=== PATIENT | female | born 1970 | race Caucasian/White ===

== ENCOUNTER 2019-02-19 10:00 | Observation (INO) ==
[2019-02-19] MEDS ORDERED: Aspirin 325 MG TABLET PO ONE (10:25)
[2019-02-19] MEDS: Nitroglycerin 0.4 MG TAB.SUBL SL SCH ×2 (10:41→14:35)
[2019-02-19 10:42] LABS: Basophils # 0.1 K/mcL (0.0-0.2); Basophils % 0.7 %; Eosinophils # 0.2 K/mcL (0.0-0.6); Hematocrit 40.4 % (35.3-44.9); Hemoglobin 13.2 g/dL (11.5-15.4); Lymphocytes # 1.9 K/mcL (0.6-4.6); Lymphocytes % 24.6 %; Mean Corpuscular HGB Conc 32.7 g/dL (31.6-35.5); Mean Corpuscular Hemoglobin 28.9 pg (28.0-33.3); Mean Corpuscular Volume 88.4 fL (83.0-100.0); Mean Platelet Volume 9.2 fL (9.4-12.4); Monocytes # 0.7 K/mcL (0.0-1.3); Monocytes % 9.4 %; Neutrophils # 4.7 K/mcL (1.6-8.9); Platelet Count 425 K/mcL (140-400); Red Blood Count 4.57 M/mcL (3.82-4.97); Red Cell Distribution Width 14.2 % (11.5-14.5); Segmented Neutrophils % 61.3 %; White Blood Count 7.7 K/mcL (4.3-11.1)
--- NOTE | 2019-02-19 10:44 | Emergency Department Note ---
Disposition Clinical Impression: Chest pain Qualifiers: Chest pain type: unspecified Qualified Code(s): R07.9 - Chest pain, unspecified Disposition: Admitted As Inpatient Condition: Good Referrals: Lázaro Acuña Jr, MD [Primary Care Provider] - Forms: ED Satisfaction Letter Time of Disposition: 11:54 Chest Pain HPI - General Chief Complaint: ED Chest Pain Stated Complaint: chest pain Time Seen by Provider: 02/19/19 10:02 Source: EMS Limitations: no limitations Vital Signs Reviewed: Yes Nursing Notes Reviewed: Yes - History of Present Illness HPI Narrative: 48 year old female with history of panic attacks presents to the ED with chest pain that radiates into her bilateral shoulder and arm and neck/jaw. Marcus tstates that she was sitting at her desk at home and started to feel uneasy and than asked her daugther to take her t othe ED and she would not leave her bedroom. Cecil states that this is a first time occurance and she has risk factors including HTN and family ACS. Cecil states that she did not have dipahoreis or exetional dyspnea but she has otherwise been battling a bronchitic cough for the past 3-6 months. 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 Cecil has a strong family history of ACS and her mother was just diagnosed with a hole in her heart. Cecil states that pain has moderately improved and is just a dull ache now. No fevers, chills, or abodminal pain, nausea or vomittin Severity scale (1-10): 6 - Related Data Home Medications Medication Instructions Recorded Confirmed ALPRAZolam [Xanax 1 MG Tablet] 1 mg PO TID PRN 02/19/19 02/19/19 Acetaminophen/Butalbital/Caffe 1 tab PO PRN PRN 02/19/19 02/19/19 [Fioricet] Lisdexamfetamine Dimesylate 60 mg PO DAILY 02/19/19 02/19/19 [Vyvanse] Losartan [Cozaar] 12.5 mg PO DAILY 02/19/19 02/19/19 Omeprazole [PriLOSEC] 40 mg PO DAILY 02/19/19 02/19/19 Propranolol [Inderal] 10 mg PO BID 02/19/19 02/19/19 Sumatriptan 02/19/19 02/19/19 Topiramate [Trokendi Xr] 50 mg PO BID 02/19/19 02/19/19 Allergies Allergy/AdvReac Type Severity Reaction Status Date / Time NSAIDS (Non-Steroidal AdvReac Gastrointestinal Verified 01/21/19 07:10 Anti-Inflamma Upset Opoids AdvReac Vomiting Uncoded 01/21/19 07:10 Constitutional: Denies: fever, chills, weakness, weight change Eyes: Denies: eye pain, eye discharge, vision change ENT ED: Denies: ear pain, throat pain, dental pain, hearing loss, epistaxis, congestion, dysphagia Cardiovascular: Reports: chest pain. Denies: palpitations, dyspnea on exertion, edema, syncope Respiratory: Reports: cough. Denies: dyspnea, wheezes, hemoptysis, stridor Gastrointestinal: Denies: abdominal pain, nausea, vomiting, diarrhea, constipation, hematemesis, melena, hematochezia Genitourinary: Denies: dysuria, frequency, hematuria, discharge Musculoskeletal: Denies: back pain, neck pain, arthralgia, myalgia Integumentary: Denies: rash, abrasion, lesions Neurological: Denies: headache, weakness, numbness, paresthesias, confusion, abnormal gait, vertigo Psychiatric: Reports: anxiety. Denies: depression, suicidal thoughts, homicidal thoughts, auditory hallucinations, visual hallucinations Endocrine: Denies: fatigue Hematological/Lymphatic: Denies: easy bleeding, easy bruising Allergic/Immunologic: Denies: facial swelling, urticaria Chest Pain PMH - Past Medical History Medical history: Reports: hypertension, migraine, thyroid disease, other Psychiatric history: Reports: anxiety, depression MANAGER SPA history: Reports: no MANAGER SPA history - Social History Smoking Status: Never smoker Alcohol use: Reports: rarely Drug use: Reports: none Physical Exam - General Limitations: no limitations General appearance: alert - Head Head exam: atraumatic, normocephalic, normal inspection - Eye Eye exam: Present: normal appearance, PERRL, EOMI - Expanded Eye Exam Pupils: Bilateral: reactive - ENT ENT exam: normal exam, normal oropharynx, mucous membranes moist - Expanded ENT Exam External ear exam: Present: normal external inspection Mouth exam: Present: normal external inspection Teeth exam: Present: normal inspection Throat exam: Present: normal inspection - Neck Neck exam: Present: normal inspection, full ROM, trachea midline - Chest Chest inspection: Present: normal inspection, symmetric chest wall rise - Respiratory Respiratory exam: Present: normal lung sounds bilaterally - Cardiovascular Cardiovascular exam: Present: regular rate, normal rhythm, normal heart sounds - Abdominal Exam Abdominal exam: Present: soft, Non-Tender. Absent: tenderness, distention, guarding, rebound, rigidity - Extremities Exam Extremities exam: Present: normal inspection, full ROM. Absent: tenderness, pedal edema - Expanded Upper Extremity Exam Shoulder exam: Present: normal inspection, full ROM Arm exam: Present: normal inspection, full ROM Elbow exam: Present: normal inspection, full ROM Forearm/Wrist exam: Present: normal inspection, full ROM Hand exam: Present: normal inspection, full ROM Vascular exam: Normal: capillary refill, radial pulse - Expanded Lower Extremity Exam Hip/Pelvis exam: Present: normal inspection, full ROM Upper leg exam: Present: normal inspection, full ROM Knee exam: Present: normal inspection, full ROM Lower leg exam: Present: normal inspection, full ROM Ankle exam: Present: normal inspection, full ROM Foot/toe exam: Present: normal inspection, full ROM Neurovascular/Tendon exam: Absent: motor deficit, sensory deficit, tendon deficit - Back Exam Back exam: Present: normal inspection, full ROM. Absent: tenderness - Neurological Exam Neurological exam: Present: alert, oriented X3 - Expanded Neurological Exam Patient oriented to: Present: person, place, time Coma Scale Eye Opening: Spontaneous Coma Scale Motor Response: Obeys Commands Coma Scale Verbal Response: Oriented Coma Scale Total: 15 - Psychiatric Psychiatric exam: Present: normal affect, normal mood - Skin Skin exam: Present: warm, dry, intact, normal color Course Course Narrative: I will do a cardiac woroup on cecil and [facility] as she is a moderate heart score. - Reevaluation(s) Reevaluation #1: discussed diagnosis and plan wiht anastasiia and lucillejordan and they are agreebabkle to plan Time: 11:53 - Consultations Consultation #1: disccsued case with Dr. Proctor and she accepts marcus to her medicin service Time: 11:53 Vital Signs Temperature 98.4 F 02/19/19 10:03 Pulse Rate 90 02/19/19 10:03 Respiratory Rate 16 02/19/19 10:03 Blood Pressure 131/71 02/19/19 10:03 O2 Sat by Pulse Oximetry 99 02/19/19 10:03 Temperature 98.4 F 02/19/19 10:03 Pulse Rate 78 02/19/19 11:30 Respiratory Rate 16 02/19/19 11:30 Blood Pressure 123/92 02/19/19 11:30 O2 Sat by Pulse Oximetry 100 02/19/19 11:30 Oxygen Delivery Oxygen Delivery Room Air Chest Pain - Medical Records Medical records reviewed: Yes I reviewed the patient's medical records. - Lab Data Lab results reviewed: Yes I reviewed the patient's lab results. Result diagrams: 02/19/19 10:07 02/19/19 10:07 Lab Results 02/19/19 02/19/19 02/19/19 Range/Units 10:07 10:07 10:07 WBC 7.7 (4.3-11.1) K/mcL RBC 4.57 (3.82-4.97) M/mcL Hgb 13.2 (11.5-15.4) g/dL Hct 40.4 (35.3-44.9) % MCV 88.4 (83.0-100.0) fL MCH 28.9 (28.0-33.3) pg MCHC 32.7 (31.6-35.5) g/dL RDW 14.2 (11.5-14.5) % Plt Count 425 H (140-400) K/mcL MPV 9.2 L (9.4-12.4) fL Immature Gran % 1.0 (0-4) % Seg Neutrophils % 61.3 % Lymphocytes % 24.6 % Monocytes % 9.4 % Eosinophils % 3.0 % Basophils % 0.7 % Neutrophils # 4.7 (1.6-8.9) K/mcL Lymphocytes # 1.9 (0.6-4.6) K/mcL Monocytes # 0.7 (0.0-1.3) K/mcL Eosinophils # 0.2 (0.0-0.6) K/mcL Basophils # 0.1 (0.0-0.2) K/mcL PT 10.8 (9.4-12.1) Seconds INR 1.0 APTT 31.8 (26.0-36.0) Seconds Sodium 138 (136-145) mEq/L Potassium 3.8 (3.5-5.1) mEq/L Chloride 110 H (98-107) mEq/L Carbon Dioxide 21 L (23-29) mEq/L BUN 10 (6-20) mg/dL Creatinine 0.82 (0.60-1.20) mg/dL Est GFR ( Amer) > 60 (> 60) Est GFR (Non-Af Amer) > 60 (> 60) BUN/Creatinine Ratio 12 (6-26) Glucose 83 (70-105) mg/dL Calculated Osmolality 284 (280-300) Calcium 9.0 (8.6-10.3) mg/dL Troponin I < 0.03 (< 0.04) ng/mL - Radiology Data Radiology results reviewed: Yes I reviewed the patient's radiology results. - EKG Data EKG attestation: Yes I reviewed and interpreted this EKG. EKG results narrative: NSR with rate of 96. NO STEMI. normal intervals. no old change from 07/09/08. 1009 Heart Score - Score History: Moderately Suspicious EKG: Non Specific repolarisation Disturbance Age: 45-65 Risk Factors: 1-2 risk factors Troponin: Less than normal limit HEART Score Total: 4
[2019-02-19 10:52] LABS: Prothrombin Time 10.8 Seconds (9.4-12.1)
[2019-02-19 10:55] LABS: Activated Partial Thrombo Time 31.8 Seconds (26.0-36.0)
[2019-02-19 11:03] LABS: BUN/Creatinine Ratio 12 (6-26); Blood Urea Nitrogen 10 mg/dL (6-20); Carbon Dioxide 21 mEq/L (23-29); Chloride 110 mEq/L (98-107); Glucose 83 mg/dL (70-105); Osmolality,Calculated 284 (280-300); Potassium 3.8 mEq/L (3.5-5.1); Sodium 138 mEq/L (136-145); Troponin I < 0.03 ng/mL (< 0.04); eGFR For African Americans > 60 (> 60); eGFR For Non-African Americans > 60 (> 60)
--- NOTE | 2019-02-19 12:40 | Internal Med History&Physical ---
Date of Encounter: 02/19/19 Time of Encounter: 12:40 Internal Medicine - H&P: HPI Chief complaint: Chest pain History of present illness: Ms. Trammell is a 48 year old female with past medical history of hypertension, thyroid disease and migraine headache who presented to the ER with midsternal chest pain radiating to her left shoulder and her neck associated with shortness of breath and nausea. The patient has history of panic attack but believed that this is not similar to her prior panic attack. The patient stated that she have negative stress test couple of years ago at [facility]. She also stated that is strong family history of coronary artery disease. The patient denies diaphoresis orthopnea, paroxysmal nocturnal dyspnea, or progressive worsening of lower extremity edema. She also complaining of 3 weeks history of chronic dry cough that she was treated for as an outpatient was no resignation. The patient at the bedside stated that she is now having severe nausea but she declined nausea medication and stated that nausea medication make her feel more nauseated An EKG was obtained and severe no significant ST-T wave changes, cardiac enzymes first set was no significant abnormalities. Patient was admitted to rule out acute coronary syndrome. Past Med Surg Social Fam HX - Past Medical History Medical history: hypertension, migraine, thyroid disease, other Additional medical history: hypoglycemia Psychiatric history: anxiety, depression - Past Surgical History Additional surgical history: right rotator cuff - Social History Smoking Status: Never smoker Smokeless Tobacco Status: No Alcohol use: rarely Drug use: none - Family History Mother Living Status: Still Living Hx Family Cardiac Disorders: Yes (PFO) Hx Family Respiratory Disorders: Yes (Asthma) Hx Family Cancer: Yes (Cervical and Skin) Hx Family GI Disorders: Yes (Diverticluitis, and partial coloectomy, stomach ulcers) Hx Family Genitourinary Disorders: No Hx Family Endocrine Disorder: Yes (Thyroid) Hx Family Musculoskeletal Disorders: No (Arthritis, fibromyalgia, trigger f lottie.) Hx Family Neuromuscular Disorders: No Hx Family Neurologic Disorders: No (TIA) Hx Family HEENT Disorders: No Hx Family Autoimmune Disorders: No Hx Family Reproductive Disorders: No Hx Family Psychosocial Disorders: No (Depression) Father Hx Family Cardiac Disorders: Yes (W[place] 2010, HLD,HTN) Hx Family Respiratory Disorders: No Hx Family Cancer: No Hx Family GI Disorders: No Hx Family Genitourinary Disorders: No Hx Family Endocrine Disorder: Yes (Thyroid goitter) Hx Family Musculoskeletal Disorders: Yes (bad knees) Hx Family Neuromuscular Disorders: No Hx Family Neurologic Disorders: No Hx Family HEENT Disorders: No Hx Family Autoimmune Disorders: No Hx Family Reproductive Disorders: No Hx Family Psychosocial Disorders: Yes (Bipolar) Hx Family Medical Disorders: No Internal Medicine - H&P: Meds ALPRAZolam [Xanax 1 MG Tablet] 1 mg PO TID PRN 02/19/19 [History] Acetaminophen/Butalbital/Caffe [Fioricet] 1 tab PO PRN PRN 02/19/19 [History] Lisdexamfetamine Dimesylate [Vyvanse] 60 mg PO DAILY 02/19/19 [History] Losartan [Cozaar] 12.5 mg PO DAILY 02/19/19 [History] Omeprazole [PriLOSEC] 40 mg PO DAILY 02/19/19 [History] Propranolol [Inderal] 10 mg PO BID 02/19/19 [History] Sumatriptan 100 mg PO BID MDD 200 mg 02/19/19 [History] Topiramate [Trokendi Xr] 50 mg PO BID 02/19/19 [History] Allergy/AdvReac Type Severity Reaction Status Date / Time NSAIDS (Non-Steroidal AdvReac Gastrointestinal Verified 01/21/19 07:10 Anti-Inflamma Upset ondansetron [From Zofran] AdvReac Vomiting Verified 02/19/19 21:02 opioids AdvReac Vomiting Uncoded 02/19/19 17:38 All Systems PM: A 10-system review of systems was performed and is negative for pertinent findings except as documented above in the HPI. - Constitutional Vitals: Temp Pulse Resp BP Pulse Ox 98.4 F 78 16 123/92 100 02/19/19 10:03 02/19/19 11:30 02/19/19 11:30 02/19/19 11:30 02/19/19 11:30 General appearance: Present: A&O X 3 Exam: ` - Head Head exam: Present: atraumatic, normocephalic - Neck Neck exam general surgery: Present: supple, trachea midline. Absent: lymphadenopathy - Respiratory Respiratory exam: Present: CTAB. Absent: accessory muscle use, rales, rhonchi, wheezes - Cardiovascular Cardiovascular exam: Present: RRR, +S1, +S2. Absent: diastolic murmur, gallop, rubs, systolic murmur - GI/Abdominal GI/Abdominal exam: Present: normal bowel sounds, soft, no peritoneal signs. Ab sent: distended, tenderness - Extremities Exam Extremities exam: Present: warm, radial pulses palpable and symmetrical. Absent: calf tenderness, cyanotic, pedal edema Internal Med - H&P Results - Labs CBC & Chem 7: 02/20/19 03:38 02/20/19 03:38 Labs: Short CBC 02/19/19 Range/Units 10:07 WBC 7.7 (4.3-11.1) K/mcL Hgb 13.2 (11.5-15.4) g/dL Hct 40.4 (35.3-44.9) % Plt Count 425 H (140-400) K/mcL Neutrophils # 4.7 (1.6-8.9) K/mcL BMP 02/19/19 10:07 Sodium 138 Potassium 3.8 Chloride 110 H Carbon Dioxide 21 L BUN 10 Creatinine 0.82 Glucose 83 Calcium 9.0 Cardiac Enzymes 02/19/19 Range/Units 10:07 Troponin I < 0.03 (< 0.04) ng/mL - Impressions ITS Impressions Chest X-Ray 02/19/19 10:03 IMPRESSION: 1. No active pulmonary disease. D/ / Moustapha Guajardo MD / Moustapha Guajardo MD Interpreting Provider: Moustapha Guajardo MD - Assessment and Plan (1) Chest pain Current Visit: Yes Status: Acute Assessment and plan: ASSESSMENT: - Chest pain , less likely cardiac in origin, patient has severe anxiety issues, admitted to panic attack history, The patient stated that she have negative stress test couple of years ago at [facility]. DD *CAD *Muskuloskeletal CP - myofascial strain, costochondritis *GERD *Esophageal spasm *Pneumonia - no infiltrate on CXR PLAN: - cardiac enzymes x 2 q 8 hr - EKG now and in AM - ASA - O2 by NC to keep SpO2 greater than 92% - UA - CBCD, BMP in AM - Fasting lipids - Tylenol 650 mg PO q 4-6 hr PRN headache - 2D Echo Qualifiers: Chest pain type: unspecified Qualified Code(s): R07.9 - Chest pain, unspecified (2) Hypertension Current Visit: Yes Status: Acute Assessment and plan: We will continue home medication, we will monitor blood pressure while inpatient and adjust regimen if indicated Qualifiers: Qualified Code(s): I10 - Essential (primary) hypertension (3) Migraine Current Visit: Yes Status: Acute Assessment and plan: We will continue home medication. Qualifiers: Qualified Code(s): G43.909 - Migraine, unspecified, not intractable, without status migrainosus (4) Nonproductive cough Current Visit: Yes Status: Acute Assessment and plan: Chest x-ray was reviewed and revealed No active pulmonary disease. The patient is on ARBs for almost 3 years, usually dry cough is more pain with ACEIs, however there is reported cases of persistent dry cough with ARBS. (5) Metabolic acidosis Current Visit: Yes Status: Acute Assessment and plan: Most likely 2/2 Topiramate, due to impairing both the normal reabsorption of filtered HCO3 by the proximal renal tubule and the excretion of H+ by the distal renal tubule. - Time Spent With Patient Total time spent is greater than 50% in coordination of care (as documented) at patient's floor/unit and/or counseling patient:
[2019-02-19] MEDS ORDERED: *HR* HYDROcodone/Acet 5/325 mg TABLET PO PRN (15:02)
[2019-02-19] MEDS ORDERED: Naloxone 0.4 MG/ML INJ IVP PRN (15:02)
[2019-02-19] MEDS ORDERED: Acetaminophen 325 MG TABLET PO PRN (15:02)
[2019-02-19] MEDS ORDERED: Ondansetron 4 MG/2 ML VIAL IVP PRN (15:02)
--- NOTE | 2019-02-19 16:53 | Electrocardiograph Report ---
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
[2019-02-19] MEDS: Acetaminophen/Butalbital/CaffeineTABLET PO PRN (17:42)
[2019-02-19] MEDS: Topiramate 25 MG TABLET PO SCH (20:59)
[2019-02-19] MEDS: ALPRAZolam 1 MG TABLET PO PRN (20:59)
[2019-02-19] MEDS ORDERED: SUMAtriptan succinate 50 MG TABLET PO PRN (21:00)
[2019-02-20 04:54] LABS: Basophils # 0.1 K/mcL (0.0-0.2); Basophils % 0.7 %; Eosinophils # 0.3 K/mcL (0.0-0.6); Eosinophils % 3.5 %; Hematocrit 40.6 % (35.3-44.9); Hemoglobin 13.4 g/dL (11.5-15.4); Immature Granulocytes % 0.6 % (0-4); Lymphocytes # 2.3 K/mcL (0.6-4.6); Lymphocytes % 27.9 %; Mean Corpuscular Hemoglobin 29.7 pg (28.0-33.3); Mean Platelet Volume 9.2 fL (9.4-12.4); Monocytes # 0.7 K/mcL (0.0-1.3); Neutrophils # 4.8 K/mcL (1.6-8.9); Platelet Count 385 K/mcL (140-400); Red Blood Count 4.51 M/mcL (3.82-4.97); Segmented Neutrophils % 58.3 %; White Blood Count 8.2 K/mcL (4.3-11.1)
[2019-02-20 04:58] LABS: Prothrombin Time 11.7 Seconds (9.4-12.1)
[2019-02-20 05:00] LABS: Activated Partial Thrombo Time 32.9 Seconds (26.0-36.0)
[2019-02-20 05:09] LABS: Alanine Aminotransferase 28 Units/L (7-52); Albumin 3.9 g/dL (3.5-5.7); Albumin/Globulin Ratio 1.8 (1.1-2.2); Alkaline Phosphatase 46 Units/L (34-104); Aspartate Amino Transferase 22 Units/L (13-39); BUN/Creatinine Ratio 13 (6-26); Bilirubin,Total 0.5 mg/dL (0.3-1.0); Blood Urea Nitrogen 11 mg/dL (6-20); Carbon Dioxide 19 mEq/L (23-29); Chloride 111 mEq/L (98-107); Chol/HDL Ratio 3.4 (0-4.9); Cholesterol 172 mg/dL (< 200); Globulin 2.2 g/dL (2.4-3.5); Glucose 89 mg/dL (70-105); HDL Cholesterol 51 mg/dL (40-59); LDL Cholesterol,Calculated 102 mg/dL (0-99); Magnesium 2.2 mg/dL (1.6-2.6); Osmolality,Calculated 287 (280-300); Potassium 3.9 mEq/L (3.5-5.1); Sodium 139 mEq/L (136-145); Total Protein 6.1 g/dL (6.4-8.9); Triglycerides 94 mg/dL (< 150); eGFR For African Americans > 60 (> 60); eGFR For Non-African Americans > 60 (> 60)
[2019-02-20] MEDS ORDERED: Regadenoson 0.4 MG/5 ML SYRINGE IVP ONE (07:37)
[2019-02-20] MEDS ORDERED: Aspirin 81 MG TAB.CHEW PO SCH (09:00)
[2019-02-20] MEDS: LISDEXAMFETAMINE DIMESYLATE 60 MG PO SCH ×2 (10:03→10:16)
[2019-02-20] MEDS: Topiramate 25 MG TABLET PO SCH (10:16)
[2019-02-20] MEDS: ALPRAZolam 1 MG TABLET PO PRN (10:19)
[2019-02-20] MEDS: Acetaminophen/Butalbital/CaffeineTABLET PO PRN (14:10)
--- NOTE | 2019-02-20 14:38 | Discharge Summary ---
- NOTES TO OUTPATIENT PROVIDER Notes to Outpatient Provider: f/u with PCP in one week. Orders not resulted at time of discharge: Pending orders 02/20/19 06:35 NM janie perf SPECT multi [NM] Routine 02/20/19 11:30 MR head/brain wo con [MR] Routine Date of Encounter: 02/20/19 Time of Encounter: 14:34 - Discharge Diagnosis (1) Chest pain Priority: Primary Status: Acute Qualifiers: Chest pain type: unspecified Qualified Code(s): R07.9 - Chest pain, unspecified (2) TIA (transient ischemic attack) Priority: Secondary Status: Acute (3) Hypertension Priority: Secondary Status: Acute Qualifiers: Qualified Code(s): I10 - Essential (primary) hypertension (4) Migraine Priority: Secondary Status: Acute Qualifiers: Qualified Code(s): G43.909 - Migraine, unspecified, not intractable, without status migrainosus (5) Nonproductive cough Priority: Secondary Status: Acute (6) Metabolic acidosis Priority: Secondary Status: Acute Hospital course: Ms. Trammell is a 48 year old female with past medical history of Childhood asthma, hypertension, hypothyroidism, TIA and migraine headaches who presented to the ER with mid sternal chest pain radiating to her left shoulder and her neck associated with shortness of breath and nausea. The patient has history of panic attack but believed that this is not similar to her prior panic attack. She was admitted in the hospital and placed on case monitor. Her EKG did not show any acute ischemic changes. Since she is high risk for ACS, she did go for nuclear stress test which came back as negative for Ischemia / Infarction. She also c/o aphasia and slurred speech last night when she came to the floor , which were resolved. Her Brain MRI did not show any acute ischemia / infarction. - Time Spent with Patient Total time spent providing and/or coordinating discharge services: - Discharge Medications Prescriptions: New Albuterol Sulfate [Albuterol Inhaler] 2 puff IH Q6HR PRN #1 hfa.aer.ad PRN Reason: Shortness Of Breath Aspirin 81 mg PO DAILY #30 tab.chew Omeprazole [PriLOSEC] 20 mg PO BIDAC #60 cap GuaiFENesin/Dextromethorphan [Robitussin/DM] 10 ml PO Q6HR PRN #240 syrup PRN Reason: Cough Continued ALPRAZolam [Xanax 1 MG Tablet] 1 mg PO TID PRN PRN Reason: Anxiety Acetaminophen/Butalbital/Caffe [Fioricet] 1 tab PO PRN PRN PRN Reason: Migraine Headache Lisdexamfetamine Dimesylate [Vyvanse] 60 mg PO QAM Propranolol [Inderal] 10 mg PO BID PRN PRN Reason: Migraine Headache SUMAtriptan Succinate [Imitrex] 50 mg PO BID #0 MDD 200 mg Discontinued Omeprazole [PriLOSEC] 40 mg PO DAILY PRN PRN Reason: Heartburn No Action FLUoxetine HCl [Fluoxetine HCl] 40 mg PO DAILY Topiramate 50 mg PO BID Home Medications: ALPRAZolam [Xanax 1 MG Tablet] 1 mg PO TID PRN 02/19/19 [History] Acetaminophen/Butalbital/Caffe [Fioricet] 1 tab PO PRN PRN 02/19/19 [History] Lisdexamfetamine Dimesylate [Vyvanse] 60 mg PO QAM 02/19/19 [History] Propranolol [Inderal] 10 mg PO BID PRN 02/19/19 [History] SUMAtriptan Succinate [Imitrex] 50 mg PO BID #0 MDD 200 mg 02/19/19 [History] Albuterol Sulfate [Albuterol Inhaler] 2 puff IH Q6HR PRN #1 hfa.aer.ad 02/20/19 [Rx] Aspirin 81 mg PO DAILY #30 tab.chew 02/20/19 [Rx] FLUoxetine HCl [Fluoxetine HCl] 40 mg PO DAILY 02/20/19 [History] GuaiFENesin/Dextromethorphan [Robitussin/DM] 10 ml PO Q6HR PRN #240 syrup 02/20/19 [Rx] Omeprazole [PriLOSEC] 20 mg PO BIDAC #60 cap 02/20/19 [Rx] Topiramate 50 mg PO BID 02/20/19 [History] Allergies/Adverse Reactions: Allergy/AdvReac Type Severity Reaction Status Date / Time NSAIDS (Non-Steroidal AdvReac Gastrointestinal Verified 02/20/19 15:47 Anti-Inflamma Upset ondansetron [From Zofran] AdvReac Vomiting Verified 02/20/19 15:47 opioids AdvReac Vomiting Uncoded 02/20/19 15:47 Date of admission: 02/19/19 12:44 Primary care physician: Lázaro Acuña Jr, MD - Constitutional Vitals: Temp Pulse Resp BP Pulse Ox 97.9 F 70 17 113/68 92 02/20/19 10:58 02/20/19 10:58 02/20/19 10:58 02/20/19 10:58 02/20/19 10:58 General appearance: Present: A&O X 3 Exam: Gen: Alert, awake, Oriented to time,place and person Chest: Diminished breath sounds B/L, No wheezing, No crackles, No rales Heart: S1S2+ RRR No murmurs Abd: Soft, NT, BS +, No organomegaly Ext: No edema, pulses are palpable, No calf tenderness Neuro : No acute focal neuro deficits noticed Skin: No rash. - Patient Status Disposition: Home, Self-Care Condition: Good Overall status at discharge: patient is back to baseline - Discharge Instructions Instructions: Albuterol (By breathing), Aspirin (By mouth), Dextromethorphan (By mouth), Omeprazole (By mouth), Transient Ischemic Attack (DC), Chest Pain (DC), Chronic Hypertension (DC), Metabolic Acidosis (GEN), Migraine Headache, Spray Maker (GEN) Follow Up With: Lázaro Acuña Jr, MD [Primary Care Provider] - 03/01/19 11:00 am - Diet and Activity Activity: increase activity as tolerated
[2019-02-20 14:44] VITALS: BP 123/79
--- NOTE | 2019-02-20 20:20 | Electrocardiograph Report ---
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
== END 2019-02-20 17:57 | disposition home or self-care (01) ==
LOC: 3BNU 10:00 → EMEROOARM 10:00 → 3BNU 14:09
PROVIDERS: ADMIT Internal Medicine Nephrology; ATTEND Internal Medicine Nephrology